=== PATIENT | male | born 1965 | race Caucasian/White ===

== ENCOUNTER 2024-12-21 05:49 | Day surgery (SDC) | payer OTHER ==
[2024-12-18 13:19] VITALS: BMI 24.3
[2024-12-21 09:34] VITALS: TEMP 98.4
[2024-12-21 09:46] VITALS: RESP 18
[2024-12-21 10:23] VITALS: BP 119/59; PULSE 71
== END 2024-12-21 10:15 | disposition home or self-care (01) ==
LOC: JASU-ENDO 05:49
PROVIDERS: ATTEND Internal Medicine Gastroenterology
PROC: 3E0H8GC Introduction of Other Therapeutic Substance into Lower GI, Via Natural or Artificial Opening Endoscopic (ICD-10-PCS; 2024-12-21)
PROC: 0DBH8ZX Excision of Cecum, Via Natural or Artificial Opening Endoscopic, Diagnostic (ICD-10-PCS; principal; 2024-12-21 08:00)
DX: D12.0 Benign neoplasm of cecum (principal); Z86.0101 Personal history of adenomatous and serrated colon polyps
CPT/HCPCS: 88305-TC